=== PATIENT | male | born 1935 | race Caucasian/White ===

== ENCOUNTER 2020-02-11 10:02 | Emergency (ER) | payer OTHER, MEDICARE ==
[2020-02-11] MEDS ORDERED: Sodium Chloride 0.9% 10 ML Syringe FLUSH PRN ×2 (10:34→11:56)
[2020-02-11] MEDS ORDERED: Pantoprazole 40 MG Vial IVPUSH ONE (10:35)
[2020-02-11] MEDS ORDERED: Diatrizoate Meglumine/Diatrizoate Sodium 37% 120 ML Bottle PO ONE (11:56)
[2020-02-11] MEDS ORDERED: Iopamidol 612 MG/ML 100 ML Bottle IVPUSH ONE (11:56)
--- NOTE | 2020-02-11 12:24 | EDM.PDOC ---
ED HPI GENERAL MEDICAL PROBLEM - General Chief Complaint: Gastrointestinal Problem Stated Complaint: COUGHING/SOB Time Seen by Provider: 02/11/20 10:18 Source of Information: Reports: Patient History Limitations: Reports: No Limitations - History of Present Illness INITIAL COMMENTS - FREE TEXT/NARRATIVE: The patient presents with black stool and emesis. He said on Thursday he had some dark stool and then that night he vomited and it was dark. He has not been nauseated or vomited since. He also has not had a bowel movement since. He has no abdominal pain now. He did get lightheaded when standing a couple times in the past few days. He has no fever, chills, cough, congestion, runny nose, chest pain, shortness of breath, dysuria or diarrhea. He does not take aspirin or any blood thinners. He is not on any medications. He only takes some vitamins. Onset: Gradual Duration: Day(s): (5) Improves with: Reports: None Worsens with: Reports: None Associated Symptoms: Reports: Nausea/Vomiting. Denies: Chest Pain, Cough, Fever /Chills, Headaches, Shortness of Breath - Related Data Allergies Allergy/AdvReac Type Severity Reaction Status Date / Time No Known Allergies Allergy Verified 02/11/20 10:20 Home Meds: Home Meds Omeprazole Magnesium [Prilosec Otc] 20 mg PO DAILY #14 tablet. 02/11/20 [Rx] Past Medical History - Infectious Disease History Infectious Disease History: Reports: Measles - Past Surgical History GI Surgical History: Reports: Appendectomy, Hernia, Inguinal Social & Family History - Family History Family Medical History: Noncontributory - Tobacco Use Smoking Status *Q: Former Smoker Used Tobacco, but Quit: Yes Month/Year Tobacco Last Used: 10/1955 ED ROS GENERAL - Review of Systems Review Of Systems: See Below Constitutional: Reports: No Symptoms HEENT: Reports: No Symptoms Respiratory: Reports: No Symptoms Cardiovascular: Reports: Chest Pain. Denies: Lightheadedness Endocrine: Reports: No Symptoms GI/Abdominal: Reports: Black Stool, Nausea, Vomiting. Denies: Abdominal Pain : Reports: No Symptoms Musculoskeletal: Reports: No Symptoms ED EXAM, GI/ABD - Physical Exam Exam: See Below Exam Limited By: No Limitations General Appearance: Alert, No Apparent Distress Ears: Normal External Exam Nose: Normal Inspection Head: Atraumatic, Normocephalic Neck: Normal Inspection Respiratory/Chest: No Respiratory Distress, Lungs Clear, Normal Breath Sounds Cardiovascular: Regular Rate, Rhythm, No Edema, No Murmur GI/Abdominal Exam: Soft, Non-Tender, No Organomegaly, No Mass Rectal (Males) Exam: Black Stool, Heme + Stool Extremities: Normal Inspection Course - Vital Signs Last Recorded V/S: Last Vital Signs Temp 97.2 F 02/11/20 10:21 Pulse 68 02/11/20 10:21 Resp 18 02/11/20 10:21 BP 140/66 02/11/20 10:21 Pulse Ox 98 02/11/20 10:21 - Orders/Labs/Meds Orders: Active Orders 24 hr Category Date Time Status Peripheral IV Care [RC] . DIRECTED Care 02/11/20 10:35 Active Abdomen Pelvis w Cont [CT] Stat Exams 02/11/20 10:34 Taken Sodium Chloride 0.9% [Saline Flush] Med 02/11/20 10:34 Active 10 ml FLUSH ASDIRECTED PRN Sodium Chloride 0.9% [Saline Flush] Med 02/11/20 11:56 Active 10 ml FLUSH ONETIME PRN Peripheral IV Insertion Adult [OM.PC] Stat Oth 02/11/20 10:34 Ordered Medication Orders Sodium Chloride (Saline Flush) 10 ml FLUSH ASDIRECTED PRN PRN Reason: Keep Vein Open Last Admin: 02/11/20 10:45 Dose: 10 ml Sodium Chloride (Saline Flush) 10 ml FLUSH ONETIME PRN PRN Reason: Keep Vein Open Last Admin: 02/11/20 12:16 Dose: 10 ml Labs: Laboratory Tests 02/11/20 02/11/20 02/11/20 Range/Units 10:30 10:30 10:30 WBC 9.66 H (4.23-9.07) K/mm3 RBC 3.40 L (4.63-6.08) M/mm3 Hgb 10.8 L D (13.7-17.5) gm/dl Hct 33.3 L (40.1-51.0) % MCV 97.9 H D (79.0-92.2) fl MCH 31.8 (25.7-32.2) pg MCHC 32.4 (32.2-35.5) g/dl RDW Std Deviation 48.0 H (35.1-43.9) fL Plt Count 388 H (163-337) K/mm3 MPV 9.2 L (9.4-12.3) fl Neut % (Auto) 61.0 (34.0-67.9) % Lymph % (Auto) 29.5 (21.8-53.1) % [place] % (Auto) 8.4 (5.3-12.2) % Eos % (Auto) 0.7 L (0.8-7.0) Baso % (Auto) 0.2 (0.1-1.2) % Neut # (Auto) 5.89 H (1.78-5.38) K/mm3 Lymph # (Auto) 2.85 (1.32-3.57) K/mm3 [place] # (Auto) 0.81 (0.30-0.82) K/mm3 Eos # (Auto) 0.07 (0.04-0.54) K/mm3 Baso # (Auto) 0.02 (0.01-0.08) K/mm3 PT 9.9 (9.7-12.0) SECONDS INR 0.93 APTT 23 (22-31) SECONDS Sodium 139 (136-145) mEq/L Potassium 4.3 (3.5-5.1) mEq/L Chloride 106 (98-107) mEq/L Carbon Dioxide 24 (21-32) mEq/L Anion Gap 13.3 (5-15) BUN 28 H (7-18) mg/dL Creatinine 1.1 (0.7-1.3) mg/dL Est Cr Clr Drug Dosing 50.69 mL/min Estimated GFR (MDRD) > 60 (>60) mL/min BUN/Creatinine Ratio 25.5 H (14-18) Glucose 117 H (83-115) mg/dL Calcium 8.8 (8.5-10.1) mg/dL Total Bilirubin 0.5 (0.2-1.0) mg/dL AST 16 (15-37) U/L ALT 19 (16-63) U/L Alkaline Phosphatase 62 (46-116) U/L Total Protein 6.4 (6.4-8.2) g/dl Albumin 3.2 L (3.4-5.0) g/dl Globulin 3.2 gm/dL Albumin/Globulin Ratio 1.0 (1-2) Lipase 176 (73-393) U/L Meds: Medications Generic Name Dose Route Start Last Admin Trade Name Filipe PRN Reason Stop Dose Admin Sodium Chloride 10 ml 02/11/20 10:34 02/11/20 10:45 Saline Flush FLUSH 10 ml ASDIRECTED PRN Administration Keep Vein Open Sodium Chloride 10 ml 02/11/20 11:56 02/11/20 12:16 Saline Flush FLUSH 10 ml ONETIME PRN Administration Keep Vein Open Discontinued Medications Generic Name Dose Route Start Last Admin Trade Name Filipe PRN Reason Stop Dose Admin Diatrizoate Meglum/Diatrizoate Sod 90 ml 02/11/20 11:56 02/11/20 12:15 Gastrografin 37% PO 02/11/20 11:57 90 ml ONETIME ONE Administration Iopamidol 100 ml 02/11/20 11:56 02/11/20 12:15 Isovue-300 (61%) IVPUSH 02/11/20 11:57 100 ml ONETIME ONE Administration Pantoprazole Sodium 80 mg 02/11/20 10:35 02/11/20 10:43 Protonix Iv IVPUSH 02/11/20 10:36 80 mg BOLUS ONE Administration - Re-Assessments/Exams Free Text/Narrative Re-Assessment/Exam: 02/11/20 12:24 I ordered an IV saline lock, labs, and a CT of his abdomen and pelvis. His WBC was slightly elevated at 9.66. His Hgb was low at 10.8. In May his Hgb was 12.8. His PT and PTT look good. His CMP looks good. He lipase is normal. I am waiting for his CT now. 02/11/20 13:[address] shows no bowel obstruction, colitis or diverticulitis. Hiatal hernia. Right adrenal nodule. 02/11/20 13:23 I feel he may have a gastric ulcer. I will get him on some prilosec and follow up with Dr Rodas and possibly set him up for an EGD. Departure - Departure Time of Disposition: 13:30 Disposition: Home, Self-Care 01 Condition: Good Clinical Impression: Upper GI bleed Anemia Qualifiers: Anemia type: other cause Other causes of anemia: other cause, not classified Qualified Code(s): D64.89 - Other specified anemias - Discharge Information *PRESCRIPTION DRUG MONITORING PROGRAM REVIEWED*: Not Applicable *COPY OF PRESCRIPTION DRUG MONITORING REPORT IN PATIENT KATHRYN: Not Applicable Prescriptions: Omeprazole Magnesium [Prilosec Otc] 20 mg PO DAILY #14 tablet. Referrals: Yenny Rodas MD [Primary Care Provider] - 2 Days Forms: ED Department Discharge Additional Instructions: Take the prilosec daily. Follow up with Dr Rodas on Thursday or Thursday to have your blood counts rechecked and possibly set up for an EGD/colonoscopy. Please return if you are worse. Sepsis Event Note - Evaluation Sepsis Screening Result: No Definite Risk - Focused Exam Vital Signs: Vital Signs Temp Pulse Resp BP Pulse Ox 02/11/20 10:21 97.2 F 68 18 140/66 98 Date Exam was Performed: 02/11/20 Time Exam was Performed: 13:23 - My Orders Last 24 Hours: My Active Orders 02/11/20 10:34 Abdomen Pelvis w Cont [CT] Stat Sodium Chloride 0.9% [Saline Flush] 10 ml FLUSH ASDIRECTED PRN Peripheral IV Insertion Adult [OM.PC] Stat 02/11/20 10:35 Peripheral IV Care [RC] . DIRECTED 02/11/20 11:56 Sodium Chloride 0.9% [Saline Flush] 10 ml FLUSH ONETIME PRN - Assessment/Plan Last 24 Hours: My Active Orders 02/11/20 10:34 Abdomen Pelvis w Cont [CT] Stat Sodium Chloride 0.9% [Saline Flush] 10 ml FLUSH ASDIRECTED PRN Peripheral IV Insertion Adult [OM.PC] Stat 02/11/20 10:35 Peripheral IV Care [RC] . DIRECTED 02/11/20 11:56 Sodium Chloride 0.9% [Saline Flush] 10 ml FLUSH ONETIME PRN
--- NOTE | 2020-02-11 18:25 | CT ---
CT abdomen and pelvis Technique: Multiple axial sections were obtained from slightly below the top the liver inferiorly through the pubic symphysis. Intravenous and oral contrast was utilized. Delayed images were obtained through the bladder. Comparison: No prior abdominal imaging is available. Findings: Visualized lung bases show nothing acute. Fairly large hiatal hernia is noted. Liver contains no focal parenchymal abnormality. Gallbladder contains no calcified gallstones. Spleen appears within normal limits. Adrenal glands show no nodule. Kidneys show symmetric contrast enhancement without discrete mass. Pancreas is within normal limits. Aorta shows diffuse atherosclerotic calcification which continues into the iliac vessels. No retroperitoneal adenopathy is seen. No mesenteric abnormalities are seen. No pelvic mass or adenopathy is appreciated. Appendix not visualized. Delayed images shows contrast within both distal ureters as well as contrast within the bladder. Mild artifact is noted from right hip prosthesis. Bone window settings were reviewed which shows degenerative change within the spine with no acute osseous finding being seen. Impression: 1. Fairly large hiatal hernia. 2. Other findings believed to be incidental. Nothing acute is appreciated on CT study of the abdomen and pelvis. Diagnostic code #2 Study was dictated in MDT
== END 2020-02-11 13:42 | disposition home or self-care (01) ==
LOC: JD.ED 10:02
DX: K92.2 Gastrointestinal hemorrhage, unspecified (principal); D64.89 Other specified anemias; Z87.891 Personal history of nicotine dependence
CPT/HCPCS: 36415; 74177; 80053; 83690; 85025; 85610; 85730; 96374; 99285; C9113; Q9963; Q9967; 99284

== ENCOUNTER 2021-10-31 11:14 | Emergency (ER) | payer OTHER ==
[2021-10-31] MEDS ORDERED: Sodium Chloride 0.9% 10 ML Syringe FLUSH PRN (13:43)
[2021-10-31 14:02] LABS: CORONAVIRUS COVID-19 NAA NEGATIVE (NEGATIVE)
--- NOTE | 2021-10-31 14:06 | CR ---
Chest: Portable view of the chest was obtained. Comparison: No prior chest imaging is available. Heart size appears within normal limits for portable technique. Upper mediastinum is normal. Lung markings are mildly increased. Findings raise the possibility of mild pulmonary vascular congestion. I see no definite consolidating parenchymal change. Bony structures show nothing acute. Impression: 1. Increased lung markings raising the possibility of mild pulmonary vascular congestion. Please correlate with the patient's symptoms. 2. No definite consolidating parenchymal change is seen within either lung. Diagnostic code #3
--- NOTE | 2021-10-31 14:15 | EDM.PDOC ---
ED HPI GENERAL MEDICAL PROBLEM - General Chief Complaint: Respiratory Problem Stated Complaint: STOMACH PAIN, COUGH WEAKNESS Time Seen by Provider: 10/31/21 13:43 Source of Information: Reports: Patient, RN Notes Reviewed History Limitations: Reports: No Limitations - History of Present Illness INITIAL COMMENTS - FREE TEXT/NARRATIVE: Patient is an 86-year-old male presents to the ER for evaluation of his cough, fever and weakness. Patient states that the symptoms started on Thursday. Patient has had COVID vaccine with booster, and influenza vaccine for this year's purposes. States that he was exposed to his son, roughly 2 weeks ago that had Covid. He is concerned that he may have contracted Covid at this time due to the exposure, and his symptoms. He is a fairly healthy gentleman otherwise and takes only cholesterol meds. The patient's primary care provider is the [place]. Patient's had mild fevers, cough, some abdominal discomfort due to the cough, but no nausea vomiting or diarrhea. Middle Abdomen Pain Score (Numeric/FACES): 8 - Related Data Allergies Allergy/AdvReac Type Severity Reaction Status Date / Time No Known Allergies Allergy Verified 02/11/20 10:20 Home Meds: Home Meds Omeprazole Magnesium [Prilosec Otc] 20 mg PO DAILY #14 tablet. 02/11/20 [Rx] Azithromycin [Zithromax] 250 mg PO DAILY #6 tab 10/31/21 [Rx] Cholestrol Pill 1 tab PO DAILY 10/31/21 [History] polyethylene glycoL 3350 [MiraLAX] 17 gram PO DAILY 10/31/21 [History] Past Medical History - Infectious Disease History Infectious Disease History: Reports: Measles - Past Surgical History GI Surgical History: Reports: Appendectomy, Hernia, Inguinal Social & Family History - Family History Family Medical History: No Pertinent Family History ED ROS GENERAL - Review of Systems Review Of Systems: Comprehensive ROS is negative, except as noted in HPI. ED EXAM, GENERAL - Physical Exam Exam: See Below Exam Limited By: No Limitations General Appearance: Alert, WD/WN, No Apparent Distress Respiratory/Chest: No Respiratory Distress, Normal Breath Sounds, No Accessory Muscle Use, Chest Non-Tender, Wheezing (end expiratory for forceful expiration) Cardiovascular: Normal Peripheral Pulses, Regular Rate, Rhythm, No Edema Peripheral Pulses: 2+: Radial (L), Radial (R) GI/Abdominal: Normal Bowel Sounds, Soft, Non-Tender, No Distention, No Mass Extremities: Normal Inspection, Normal Capillary Refill Neurological: Alert, Oriented, Normal Cognition, No Motor/Sensory Deficits Psychiatric: Normal Affect, Normal Mood Skin Exam: Warm, Dry, Intact, Normal Color, No Rash Course - Vital Signs Last Recorded V/S: Last Vital Signs Temp 99.2 F 10/31/21 12:28 Pulse 71 10/31/21 12:28 Resp 20 10/31/21 12:28 BP 143/78 H 10/31/21 12:28 Pulse Ox 95 10/31/21 12:28 - Orders/Labs/Meds Orders: Active Orders 24 hr Category Date Time Status Peripheral IV Care [RC] . DIRECTED Care 10/31/21 13:43 Active Sodium Chloride 0.9% [Saline Flush] Med 10/31/21 13:43 Active 10 ml FLUSH ASDIRECTED PRN Peripheral IV Insertion Adult [OM.PC] Routine Oth 10/31/21 13:43 Ordered Medication Orders Sodium Chloride (Sodium Chloride 0.9% 10 Ml Syringe) 10 ml FLUSH ASDIRECTED PRN PRN Reason: Keep Vein Open Last Admin: 10/31/21 14:18 Dose: 10 ml Documented by: DOMENIC Labs: Laboratory Tests 10/31/21 10/31/21 10/31/21 Range/Units 13:14 13:58 13:58 WBC 12.23 H (4.23-9.07) K/mm3 RBC 4.19 L (4.63-6.08) M/mm3 Hgb 13.5 L D (13.7-17.5) gm/dl Hct 41.3 (40.1-51.0) % MCV 98.6 H (79.0-92.2) fl MCH 32.2 (25.7-32.2) pg MCHC 32.7 (32.2-35.5) g/dl RDW Std Deviation 52.5 H (35.1-43.9) fL Plt Count 288 D (163-337) K/mm3 MPV 10.0 (9.4-12.3) fl Neut % (Auto) 76.5 H (34.0-67.9) % Lymph % (Auto) 11.8 L (21.8-53.1) % [place] % (Auto) 11.0 (5.3-12.2) % Eos % (Auto) 0.2 L (0.8-7.0) Baso % (Auto) 0.2 (0.1-1.2) % Neut # (Auto) 9.36 H (1.78-5.38) K/mm3 Lymph # (Auto) 1.44 (1.32-3.57) K/mm3 [place] # (Auto) 1.34 H (0.30-0.82) K/mm3 Eos # (Auto) 0.03 L (0.04-0.54) K/mm3 Baso # (Auto) 0.02 (0.01-0.08) K/mm3 Sodium (136-145) mEq/L Potassium (3.5-5.1) mEq/L Chloride (98-107) mEq/L Carbon Dioxide (21-32) mEq/L Anion Gap (5-15) BUN (7-18) mg/dL Creatinine (0.7-1.3) mg/dL Est Cr Clr Drug Dosing mL/min Estimated GFR (MDRD) (>60) mL/min BUN/Creatinine Ratio (14-18) Glucose (70-99) mg/dL Calcium (8.5-10.1) mg/dL Magnesium (1.8-2.4) mg/dL Total Bilirubin (0.2-1.0) mg/dL AST (15-37) U/L ALT (16-63) U/L Alkaline Phosphatase (46-116) U/L C-Reactive Protein 7.7 H* (<1.0) mg/dL Total Protein (6.4-8.2) g/dl Albumin (3.4-5.0) g/dl Globulin gm/dL Albumin/Globulin Ratio (1-2) Influenza Type A RNA Positive H (NEGATIVE) RSV RNA (INAAT) Negative (NEGATIVE) Influenza Type B RNA Negative (NEGATIVE) SARS-CoV-2 RNA (NABIL) Negative (NEGATIVE) 10/31/21 Range/Units 13:58 WBC (4.23-9.07) K/mm3 RBC (4.63-6.08) M/mm3 Hgb (13.7-17.5) gm/dl Hct (40.1-51.0) % MCV (79.0-92.2) fl MCH (25.7-32.2) pg MCHC (32.2-35.5) g/dl RDW Std Deviation (35.1-43.9) fL Plt Count (163-337) K/mm3 MPV (9.4-12.3) fl Neut % (Auto) (34.0-67.9) % Lymph % (Auto) (21.8-53.1) % [place] % (Auto) (5.3-12.2) % Eos % (Auto) (0.8-7.0) Baso % (Auto) (0.1-1.2) % Neut # (Auto) (1.78-5.38) K/mm3 Lymph # (Auto) (1.32-3.57) K/mm3 [place] # (Auto) (0.30-0.82) K/mm3 Eos # (Auto) (0.04-0.54) K/mm3 Baso # (Auto) (0.01-0.08) K/mm3 Sodium 136 (136-145) mEq/L Potassium 4.3 (3.5-5.1) mEq/L Chloride 103 (98-107) mEq/L Carbon Dioxide 26 (21-32) mEq/L Anion Gap 11.3 (5-15) BUN 21 H (7-18) mg/dL Creatinine 1.0 (0.7-1.3) mg/dL Est Cr Clr Drug Dosing 53.74 mL/min Estimated GFR (MDRD) > 60 (>60) mL/min BUN/Creatinine Ratio 21.0 H (14-18) Glucose 113 H (70-99) mg/dL Calcium 8.2 L (8.5-10.1) mg/dL Magnesium 1.9 (1.8-2.4) mg/dL Total Bilirubin 0.7 (0.2-1.0) mg/dL AST 27 (15-37) U/L ALT 32 (16-63) U/L Alkaline Phosphatase 80 (46-116) U/L C-Reactive Protein (<1.0) mg/dL Total Protein 7.2 (6.4-8.2) g/dl Albumin 3.0 L (3.4-5.0) g/dl Globulin 4.2 gm/dL Albumin/Globulin Ratio 0.7 L (1-2) Influenza Type A RNA (NEGATIVE) RSV RNA (INAAT) (NEGATIVE) Influenza Type B RNA (NEGATIVE) SARS-CoV-2 RNA (NABIL) (NEGATIVE) Meds: Medications Generic Name Dose Route Start Last Admin Trade Name Freq PRN Reason Stop Dose Admin Sodium Chloride 10 ml 10/31/21 13:43 10/31/21 14:18 Sodium Chloride 0.9% 10 Ml Syringe FLUSH 10 ml ASDIRECTED PRN Administration Keep Vein Open - Re-Assessments/Exams Free Text/Narrative Re-Assessment/Exam: 10/31/21 14:14 Patient presents to the ER for evaluation of his cough and other respiratory illness. Patient did test positive for influenza A but negative for Covid and RSV. Other labs are still pending at this time. Chest x-ray was read as increased lung markings raising the possibility of mild pulmonary vascular congestion. Again with the patient's end expiratory wheezing, that seemed a little bit more forceful, is very well could be a little bit of fluid on his lungs. 10/31/21 15:03 Reevaluation demonstrated a white count that is elevated at 12.23, CRP elevated at 7.7, the rest of his labs are essentially unremarkable. Due to the patient's chest x-ray findings and elevated white count with elevated CRP we will go ahead and treat him for bacterial pneumonia as well as influenza A. Mom patient and verbalized understanding of terms to return to the ER. Departure - Departure Time of Disposition: 15:04 Disposition: Home, Self-Care 01 Condition: Good Clinical Impression: Influenza A Pneumonia Qualifiers: Pneumonia type: due to unspecified organism Laterality: bilateral Lung location: unspecified part of lung Qualified Code(s): J18.9 - Pneumonia, unspecified organism - Discharge Information *PRESCRIPTION DRUG MONITORING PROGRAM REVIEWED*: No *COPY OF PRESCRIPTION DRUG MONITORING REPORT IN PATIENT KATHRYN: No Prescriptions: Azithromycin [Zithromax] 250 mg PO DAILY #6 tab Instructions: Influenza, Adult, [id number], Community-Acquired Pneumonia, Adult, [id number] Referrals: PCP,None [Primary Care Provider] - Forms: ED Department Discharge Additional Instructions: You were evaluated in the ER today for your cough and cold symptoms. Your Covid screen was negative but you did test positive for influenza A. Your chest x-ray was concerning for possible overlying pneumonia and you have been started on antibiotics. Please take as directed. This medication was electronically sent to the [facility] located in the [facility]. Antibiotics can take up to 48 hours to start providing effect, if you are not feeling much better by Thursday, do not hesitate to return to the ER for further re-evaluation. But again the patient is sick with influenza, so he might be sick for a few days. I would recommend that you follow-up with your primary care provider next week if your symptoms seem to be improving. Do not hesitate to return to the ER at any time if symptoms change or worsen. Sepsis Event Note (ED) - Focused Exam Vital Signs: Vital Signs Temp Pulse Resp BP Pulse Ox 10/31/21 12:28 99.2 F 71 20 143/78 H 95 - My Orders Last 24 Hours: My Active Orders 10/31/21 13:43 Peripheral IV Care [RC] . DIRECTED Sodium Chloride 0.9% [Saline Flush] 10 ml FLUSH ASDIRECTED PRN Peripheral IV Insertion Adult [OM.PC] Routine - Assessment/Plan Last 24 Hours: My Active Orders 10/31/21 13:43 Peripheral IV Care [RC] . DIRECTED Sodium Chloride 0.9% [Saline Flush] 10 ml FLUSH ASDIRECTED PRN Peripheral IV Insertion Adult [OM.PC] Routine
== END 2021-10-31 15:20 | disposition home or self-care (01) ==
LOC: JD.ED 11:14
DX: J10.00 Influenza due to other identified influenza virus with unspecified type of pneumonia (principal); Z79.899 Other long term (current) drug therapy; Z20.822 Contact with and (suspected) exposure to COVID-19
CPT/HCPCS: 0241U; 36415; 71045; 80053; 83735; 85025; 86140; 99284